=== PATIENT | male | born 1975 ===

== ENCOUNTER 2017-08-05 07:49 | Observation (INO) | payer BC ==
[~2017-08-05 07:49] MED LIST: Buffered Lidocaine 0.9% SYRIN* 5 ML/SYR SYRINGE INTRADERM ONE; Famotidine IV* 10 MG/ML 2 ML (20 mg) IV ONE; Metoclopramide TAB* 10 MG PO ONE
[2017-08-05] MEDS ORDERED: Buffered Lidocaine 0.9% SYRIN* 5 ML/SYR SYRINGE ONE ×2 (08:07→08:58)
[2017-08-05] MEDS ORDERED: Famotidine IV* 10 MG/ML 2 ML (20 mg) ONE (08:07)
[2017-08-05] MEDS ORDERED: Clindamycin 900 MG IVPREMIX(* 900 MG/50 ML SDV IV ONE (08:07)
[2017-08-05] MEDS ORDERED: Metoclopramide TAB* 10 MG ONE (08:07)
[2017-08-05] MEDS ORDERED: Lidocaine 1% MPF wEPI 200,000* 30 ML SDV ONE (09:22)
[2017-08-05] MEDS ORDERED: Thrombin 5,000 UNITS* 1 APPLIC KIT - topical use - TOPICAL ONE (09:22)
[2017-08-05] MEDS ORDERED: Bacitracin IV* 50,000 UNITS INJ ONE (09:23)
[2017-08-05] MEDS ORDERED: fentaNYL* 50 MCG/ML 2 ML VIAL (100 MCG VIAL) ONE ×2 (09:32→10:57)
[2017-08-05] MEDS ORDERED: Dexamethasone IV* 4 MG/ML 1 ML (4 MG) ONE (09:33)
[2017-08-05] MEDS ORDERED: Propofol* 10 MG/ML 20 ML BTL IV PUSH ONE (09:33)
[2017-08-05] MEDS ORDERED: Atracurium* 10 MG/ML 10 ML VIAL ONE (09:33)
[2017-08-05] MEDS ORDERED: Lidocaine 2% PF * 5 ML VIAL ONE (09:33)
[2017-08-05] MEDS ORDERED: Ondansetron INJ* 2 MG/ML VIAL ONE (09:33)
[2017-08-05] MEDS ORDERED: Scopolamine 1.5 mg* PATCH ONE (09:36)
[2017-08-05] MEDS ORDERED: fentaNYL* 50 MCG/ML 2 ML VIAL (100 MCG VIAL) IV PRN (10:15)
[2017-08-05] MEDS ORDERED: DiMENhydriNATE IV* 50 MG/ML VIAL IV PUSH PRN (10:15)
[2017-08-05] MEDS ORDERED: Ketorolac INJ* 30 MG/ML 1 ML VIAL IV PRN (10:15)
[2017-08-05] MEDS ORDERED: Naloxone* 0.4 MG/ML 1 ML VIAL IV PRN (10:15)
[2017-08-05] MEDS ORDERED: HYDROmorphone INJ* 1 MG/ML CARPUJECT SYRINGE IV PRN (10:15)
[2017-08-05] MEDS ORDERED: oxyCODONE/Acetamin 5/325 MG* TAB PO PRN (10:15)
[2017-08-05] MEDS ORDERED: Magnesium Hydroxide LIQ* 30 ML UDC PO PRN (10:33)
[2017-08-05] MEDS ORDERED: Acetaminophen TAB* 325 MG PO PRN (10:33)
[2017-08-05] MEDS ORDERED: Ondansetron INJ* 2 MG/ML VIAL IV PRN (10:33)
[2017-08-05] MEDS ORDERED: Ketorolac INJ* 30 MG/ML 1 ML VIAL ONE (10:57)
--- NOTE | 2017-08-05 11:28 | RAD ---
INDICATION: Left lumbar discectomy L4-L5. COMPARISON: There are no prior studies available for comparison. TECHNIQUE: A single crosstable lateral film of the lumbar spine was obtained in the operating room. FINDINGS: There is a localization instrument which projects posteriorly at the L4-L5 level. IMPRESSION: INTRAOPERATIVE CONTROL FILMS.
[2017-08-05] MEDS ORDERED: HYDROcodone/ACETAMIN 5-325 MG* 1 TAB ONE (12:03)
[2017-08-05] MEDS: HYDROcodone/ACETAMIN 5-325 MG* 1 TAB PO PRN (22:06)
[2017-08-06] MEDS: HYDROcodone/ACETAMIN 5-325 MG* 1 TAB PO PRN ×2 (06:20→10:19)
[2017-08-06 07:34] VITALS: BP 119/52
--- NOTE | 2017-08-06 08:24 | PN ---
Progress Note - Progress Note Date of Service: 08/06/17 SOAP: Subjective: [S/p L4-5 left discectomy POD #1. Complains of low back soreness this morning. Pre-op LLE pain resolved. Ambulating well independently. Denies headache and nausea. ] Objective: [ Vital Signs: Temp Pulse Resp BP Pulse Ox 98.5 F 70 16 119/52 97 08/06/17 07:30 08/06/17 07:30 08/06/17 07:30 08/06/17 07:30 08/06/17 07:30 General: Alert and oriented. Laying comfortably in bed. Neuro: Motor and sensory intact. Incision: Dressing intact. No swelling. Extremities: Full ROM] Assessment: [Satisfactory post-op course. Pain well controlled with PO pain meds.] Plan: [1. Discharge home today. 2. Discharge instructions discussed with the patient. ]
--- NOTE | 2017-08-06 20:28 | OP ---
DATE OF OPERATION: 08/05/17 - ROOM #334 DATE OF : 71 SURGEON: James Claire MD ACADEMIC GUIDANCE SPECIALIST: JD Barba ANESTHESIOLOGIST: Fredis Ochoa MD ANESTHESIA: General. PRE-OP DIAGNOSIS: Herniated nucleus pulposus, L4-5 on the left. POST-OP DIAGNOSIS: Herniated nucleus pulposus, L4-5 on the left. OPERATIVE PROCEDURE: Lumbar diskectomy, L4-5 on the left with microdissection. DESCRIPTION OF PROCEDURE: After satisfactory general anesthesia was obtained, the patient was placed on the operating table in a prone position with the chest supported on the Kit frame and the back slightly flexed. The lumbar region was then clipped, prepped and draped in a sterile manner for lumbar laminectomy and a skin incision outlined from L4 to L5. This incision was infiltrated with 1% Xylocaine with epinephrine after which it was turned down sharply to the level of the lumbar fascia. The fascia was divided along the spinous processes of L4 and L5 and the paraspinal musculature stripped away from these posterior elements using the periosteal elevator and monopolar cautery. An intraoperative x-ray was obtained verifying proper interspace localization after which a partial hemilaminectomy was carried out at L4 and L5 by removing the inferior aspect of the L4 lamina and medial aspect of the facet complex using the combination of the Midas Ricki drill and Kerrison rongeurs. The dissection was carried superiorly until the attachment of the ligamentum flavum was taken down. The ligamentum flavum was then removed with the Kerrison. At this point of the procedure, the operating microscope was brought into the field and the remainder of the procedure was done under microscopic visualization. Utilizing microdissection, epidural venous structures were coagulated and divided. Projecting beneath the L5 nerve root was noted to be a freely extruded disk fragment. The opening in the posterior longitudinal ligament was enlarged and multiple fragments of disk removed from beneath the nerve root. The disk space itself was then cleared of any loose disk material utilizing pituitary forceps and curettes. At the conclusion of the decompression, the L5 nerve roots were noted to be free in its course. After assuring adequate hemostasis, the wound was thoroughly irrigated after which the fascia was reapproximated with 0 Vicryl suture, the subcutaneous tissue closed with 3-0 Vicryl suture and the skin closed with skin clips. The estimated blood loss was less than 50 cc and the final sponge, padding and needle counts were correct. The patient was taken to the recovery room, extubated and in stable condition. [id number]/[facility] #: [id number] MTDD
--- NOTE | 2017-08-07 14:21 | DS ---
DATE OF ADMISSION: 08/05/2017. DATE OF DISCHARGE: 08/06/2017. ATTENDING PHYSICIAN: Dr. James Claire * (dictated by JD Dozier). DISCHARGE DIAGNOSIS: Herniated nucleus pulposus L4-5 on the left. SPECIAL PROCEDURE: Lumbar diskectomy at L4-5 on the left. HOSPITAL COURSE: This 41-year-old male was seen in the office with left-sided lumbar radiculopathy for the previous four months which had failed to improve with conservative treatment. MRI finding showed a large herniated disk consistent with the patient's symptoms and physical exam findings. Considering medications and therapies had failed to improve the patient's symptoms, surgery was discussed with the patient and he decided to proceed with this option. On the day of admission, he was taken to the surgery where a lumbar diskectomy at L4-5 on the left operation was carried out. Postoperatively, he is feeling well and the left lower extremity symptoms have resolved. He is ambulating independently. He is eating, drinking and voiding without difficulty. On the first postoperative day, he was discharged home to the care of his . Discharge instructions, including wound care and activity level were discussed with the patient and information on this was provided. DISCHARGE MEDICATIONS: 1. [place] 5/325 mg one to two tabs by mouth every 4 hours as needed for pain. 2. Ibuprofen 800 mg one tablet by mouth every 6 hours as needed, max daily dose 3. FOLLOW-UP: The patient will be seen in the office in approximately seven to ten days. JD DOZIER [id number]/[facility] #: [id number] [facility]
[2017-08-08] MEDS ORDERED: Scopolamine PATCH Remove* 1 NOTE MISC PATCH OFF ONE (10:16)
== END 2017-08-06 10:20 | disposition home or self-care (01) ==
LOC: OR 07:49 → SSU 11:56
PROVIDERS: ADMIT Neurological Surgery; ATTEND Neurological Surgery
PROC: 0SB20ZZ Excision of Lumbar Vertebral Disc, Open Approach (ICD-10-PCS; 2017-08-05)
PROC: 01NB0ZZ Release Lumbar Nerve, Open Approach (ICD-10-PCS; principal; 2017-08-05 09:15)
DX: M51.26 Other intervertebral disc displacement, lumbar region (principal); M54.5 Low back pain
CPT/HCPCS: 72100; 94760; A9270-GY; G0378; J1100; J1885; J2001; J2405; J2704; J3010

== ENCOUNTER 2017-08-10 08:19 | Inpatient (IN) | payer BC ==
[2017-08-10] MEDS: Morphine INJ* 2 MG/ML 1 ML CARPUJECT IV PRN (12:28)
[2017-08-10] MEDS: Docusate CAP* 100 MG PO PRN (12:34)
[2017-08-10] MEDS: Cyclobenzaprine TAB* 10 MG PO PRN (12:44)
[2017-08-10 13:06] LABS: ABS Basophils 0 10^3/ul (0-0.2); ABS Eosinophils 0 10^3/ul (0-0.6); ABS Lymphocytes 0.8 10^3/ul (1.0-4.8); ABS Monocytes 0.1 10^3/ul (0-0.8); ABS Neutrophils 13.9 10^3/ul (1.5-7.7); ABS Nucleated RBC 0 10^3/ul; Eosinophil % 0 % (0-6); Hematocrit 44 % (42-52); Hemoglobin 15.1 g/dl (14.0-18.0); Lymphocyte % 5.5 % (25-47); Mean Corpuscular HGB Conc 35 g/dl (31-36); Mean Corpuscular Hemoglobin 29 pg (27-31); Mean Corpuscular Volume 85 fL (80-94); Mean Platelet Volume 7 um3 (7.4-10.4); Nucleated Red Blood Cells % 0; Platelet Count 347 10^3/ul (150-450); Red Blood Count 5.15 10^6/ul (4.0-5.4); Red Cell Distribution Width 13 % (10.5-15); White Blood Count 14.9 10^3/ul (3.5-10.8)
[2017-08-10 13:20] LABS: EGFR Non-African American 101.1 (>60)
--- NOTE | 2017-08-10 13:34 | HP ---
H&P (Free Text) History and Physical: History and Physical Date of Admission: 08/10/17 CC: Left lower extremity pain HPI: This is a 41 year old male with past medical history significant for herniated disc L4-5 to the left s/p lumbar discectomy L4-5 on the left on . He was discharged home on 08/06/17 with improvement in the LLE pain and pre- operative symptoms. He reports repositioning in bed while at home and feeling something shift in his low back resulting in severe, shooting LLE pain, worse than pre-op. He contacted the office and was treated with a medrol dosepack which did not improve symptoms. He was also advised to rest, lay comfortably and take the pain medication prescribed at discharge. Today, the pain was so severe and unrelieved with medications that his called for an ambulance to bring him to the ED. He presented to the [facility] ED in [place] and was treated with dilaudid and IV steroids. The patient reports minimal improvement with these medications. The ED provider contacted [facility] for possible transfer to [facility]. Dr. Claire has accepted this patient as a direct admit to the surgical floor. Currently, the patient complains of LLE shooting pain beginning in the left sided low back and travelling to the left buttock then down the leg. The pain is worse with movements and he has been unable to ambulate. He has difficulty bearing weight on the LLE secondary to pain. He also complains of spasms occurring in the low back to LLE which worsens the pain. He denies RLE numbness , tingling, weakness and pain. Denies headache, nausea, chest pain and difficulty breathing. Denies fever, chills, drainage from incision. Past medical history: 1. HNP L4-5 left; s/p discectomy left 08/05/17 Past surgical history: 1. Lumbar discectomy L4-5 on the left with Dr. Claire 2. Eye surgery Home medications: 1. Hydrocodone-Acetamin 5-325 mg 08/05/17 [History] 2. Ibuprofen TAB* [Motrin TAB* 800 MG] 800 mg PO Q6H PRN #30 tab MDD 3 08/06/17 [Rx] 3. Medrol dosepack 4mg tabpack take as directed, started on 08/07/17 Allergies: 1. Penicillins Social History: This patient lives at home with his . 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 He does not smoke and rarely consumes alcohol. Family History: Non-contributory ROS: Full ROS completed. Pertinent findings stated in HPI and all others negative Physical Exam: Vital Signs: Temp Pulse Resp BP Pulse Ox 97.3 F 71 18 145/77 100 08/10/17 12:23 08/10/17 12:23 08/10/17 12:44 08/10/17 12:23 08/10/17 12:23 General: Alert and oriented. Laying supine in bed, clearly uncomfortably in pain. HEENT: Head is normocephalic and atraumatic. PERRL, EOMI, sclerae anicteric. Corrective lenses in place. Moist mucus membranes. Gross hearing intact. Neck: Supple symmetric. Nontender to palpation. CV: Radial and pedal pulses 2+ and equal bilaterally. Lungs: Breathing is nonlabored and lungs are clear. Abdomen: The abdomen is flat. Abdomen is nondistended, nontender and soft. Neuro: Speech is clear. Upper extremity motor normal. Right lower extremity- Strength 5/5. Left lower extremity- Pain with strength testing, EHL and dorsiflexion 4/5, plantarflexion 5/5. SLR positive on left. Sensation intact. Incision: Intact with estrella. Mild ecchymosis. Nontender. No warmth, erythema, swelling or drainage. Assessment: This is a 41 year old male with recurrent left sided lumbar radiculopathy with recent history of lumbar discectomy L4-5 on the left on 08/05. Post operatively he was discharged home with improvement in pre-op symptoms. LLE pain returned 1-2 days later and has been persistent despite steroids and norco. Weakness of left EHL and dorsiflexion appreciated on exam although severe pain with strength testing. Plan: 1. Admit to [facility] 2. Pain management 3. MRI lumbar spine w/wo tomorrow morning 4. CBC, BMP 5. IVF 6. Install trapeeze 7. OOB Ad david 8. Regular diet 9. SCDs
[2017-08-10] MEDS ORDERED: DEXAMETHASONE IVPB ONE (14:08)
[2017-08-10] MEDS ORDERED: NS 0.9% IVPB ONE (14:08)
[2017-08-10] MEDS: Gabapentin CAP(*) 300 MG PO SCH ×2 (15:52→21:04)
[2017-08-10] MEDS: oxyCODONE TAB* 5 MG TAB PO PRN (16:36)
[2017-08-10] MEDS ORDERED: Dexamethasone IV* 4 MG in NS 0.9% 50 ML* 50 ML IVPB SCH (20:30)
[2017-08-10] MEDS: Dexamethasone IV* 4 MG/ML 1 ML (4 MG) IV SLOW PU SCH (21:06)
[2017-08-11] MEDS: Cyclobenzaprine TAB* 10 MG PO PRN ×2 (00:29→14:58)
[2017-08-11] MEDS: Morphine INJ* 2 MG/ML 1 ML CARPUJECT IV PRN ×3 (03:44→22:05)
[2017-08-11] MEDS: Dexamethasone IV* 4 MG/ML 1 ML (4 MG) IV SLOW PU SCH ×4 (03:44→22:08)
[2017-08-11] MEDS: oxyCODONE TAB* 5 MG TAB PO PRN ×4 (08:11→21:05)
[2017-08-11] MEDS: Docusate CAP* 100 MG PO PRN ×2 (08:11→21:09)
[2017-08-11] MEDS: Gabapentin CAP(*) 300 MG PO SCH ×3 (08:11→21:06)
--- NOTE | 2017-08-11 09:12 | PN ---
Progress Note - Progress Note Date of Service: 08/11/17 SOAP: Subjective: [Patient seen and examined this morning at 0800. S/p lumbar discectomy L4-5 on the left on 08/05/17. Recurrent LLE pain, worse with movement and unable to bear weight. Symptoms slightly improved overnight with oxycodone, morphine, flexeril and decadron. Patient denies headache, nausea, fever. ] Objective: [ Vital Signs: Temp Pulse Resp BP Pulse Ox 99.4 F 94 16 143/74 95 08/11/17 15:59 08/11/17 15:59 08/11/17 16:16 08/11/17 15:59 08/11/17 15:59 General: Alert and oriented. Seems more comfortable today. Neuro: Mild EHL and dorsiflexion weakness left. Incision: Intact with estrella. No swelling, erythema, warmth. ] Assessment: [Patient slightly improved overnight. Continues to have severe LLE and low back shooting pain and spasms. ] Plan: [1. MRI without contrast lumbar spine this morning. 2. Continue pain management 3. Out of bed with assistance. ]
--- NOTE | 2017-08-11 11:31 | RAD ---
HISTORY: Postop, recurrent radiculopathy COMPARISONS: None relevant available at the time of dictation TECHNIQUE: The following sequences were obtained of the lumbar spine: Sagittal and axial T1- and T2-weighted images, coronal T2-weighted images, and sagittal STIR images. FINDINGS: There is a transitional last lumbar type vertebral body which will be labeled L5 concordant with the history of surgery. SPINAL CORD, CONUS, AND CAUDA EQUINA: The visualized spinal cord, conus, and cauda equina are normal in caliber, position, and signal intensity. ALIGNMENT: The alignment is normal. VERTEBRAL BODIES: A left-sided laminectomy defect is noted at L4-L5. There is partial sacralization of the L5 vertebral body. JOINTS: There is facet osteoarthritis along the lower lumbar spine. MUSCULATURE: There is mild fatty infiltration. INTERVERTEBRAL DISCS: There is loss of intervertebral disc height and T2 signal at L3-L4 and L4-L5. AXIAL IMAGES: L3-L4: There is a mild broad-based disc bulge with a central annular fissure. There is bilateral facet hypertrophy. There is no significant neural foraminal narrowing or central canal stenosis. L4-L5: A left-sided laminectomy defect is noted. There is bilateral facet hypertrophy. There is an epidural soft tissue density measuring 1.5 cm in depth consistent with a large left-sided left lateral recess disc extrusion. This displaces the descending nerve roots on the left. There is mild bilateral neural foraminal narrowing. L5-S1: There is bilateral facet hypertrophy. There is no significant neural foraminal narrowing or central canal stenosis. SOFT TISSUES: The visualized soft tissues of the abdomen are unremarkable. OTHER: None. IMPRESSION: 1. LEFT-SIDED LAMINECTOMY AT L4-L5. 2. THERE IS A LARGE LEFT-SIDED DISC EXTRUSION AT L4-L5 DISPLACING THE DESCENDING NERVE ROOTS.
[2017-08-12] MEDS: oxyCODONE TAB* 5 MG TAB PO PRN ×3 (03:41→22:29)
[2017-08-12] MEDS: Cyclobenzaprine TAB* 10 MG PO PRN (03:41)
[2017-08-12] MEDS: Dexamethasone IV* 4 MG/ML 1 ML (4 MG) IV SLOW PU SCH (03:46)
[2017-08-12] MEDS ORDERED: Sodium Citrate/Citric Acid* 15 ML UDC PO ONE (06:00)
[2017-08-12] MEDS ORDERED: Buffered Lidocaine 0.9% SYRIN* 5 ML/SYR SYRINGE INTRADERM ONE (06:00)
[2017-08-12] MEDS ORDERED: Famotidine IV* 10 MG/ML 2 ML (20 mg) IV ONE (06:00)
[2017-08-12] MEDS ORDERED: fentaNYL* 50 MCG/ML 2 ML VIAL (100 MCG VIAL) ONE (06:57)
[2017-08-12] MEDS ORDERED: Midazolam* 1 MG/ML 2 ML VIAL (2 MG) ONE (06:57)
[2017-08-12] MEDS ORDERED: Rocuronium* 10 MG/ML VIAL ONE (07:11)
[2017-08-12] MEDS ORDERED: Propofol* 10 MG/ML 20 ML BTL IV PUSH ONE (07:12)
[2017-08-12] MEDS ORDERED: Lidocaine 2% PF * 5 ML VIAL ONE (07:12)
[2017-08-12] MEDS ORDERED: Ondansetron INJ* 2 MG/ML VIAL ONE (07:15)
[2017-08-12] MEDS ORDERED: Ketorolac INJ* 30 MG/ML 1 ML VIAL ONE (07:15)
[2017-08-12] MEDS ORDERED: Thrombin 5,000 UNITS* 1 APPLIC KIT - topical use - TOPICAL ONE (07:23)
[2017-08-12] MEDS ORDERED: Lidocaine 1% MPF wEPI 200,000* 30 ML SDV ONE (07:23)
[2017-08-12] MEDS ORDERED: Bacitracin IV* 50,000 UNITS INJ ONE (07:24)
[2017-08-12] MEDS ORDERED: Sodium Citrate/Citric Acid* 15 ML UDC ONE (07:29)
[2017-08-12] MEDS ORDERED: Clindamycin 900 MG IVPREMIX(* 900 MG/50 ML SDV IV ONE (07:29)
[2017-08-12] MEDS ORDERED: Buffered Lidocaine 0.9% SYRIN* 5 ML/SYR SYRINGE ONE (07:29)
[2017-08-12] MEDS ORDERED: Famotidine IV* 10 MG/ML 2 ML (20 mg) ONE (07:29)
[2017-08-12] MEDS ORDERED: Naloxone* 0.4 MG/ML 1 ML VIAL IV PRN (07:30)
[2017-08-12] MEDS ORDERED: fentaNYL* 50 MCG/ML 2 ML VIAL (100 MCG VIAL) IV PRN (07:30)
[2017-08-12] MEDS ORDERED: HYDROmorphone INJ* 1 MG/ML CARPUJECT SYRINGE IV PRN (07:30)
[2017-08-12] MEDS ORDERED: oxyCODONE TAB* 5 MG TAB PO PRN ×2 (07:30)
[2017-08-12] MEDS ORDERED: Ondansetron INJ* 2 MG/ML VIAL IV PRN (07:30)
[2017-08-12] MEDS ORDERED: diPHENhydraMINE IV* 50 MG/ML 1 ml VIAL (BENADRYL) IV PRN (07:30)
[2017-08-12] MEDS ORDERED: HYDROmorphone INJ* 1 MG/ML CARPUJECT SYRINGE ONE (08:11)
[2017-08-12] MEDS: Gabapentin CAP(*) 300 MG PO SCH ×3 (08:23→20:49)
[2017-08-12] MEDS: Docusate CAP* 100 MG PO PRN (20:53)
[2017-08-13] MEDS: oxyCODONE TAB* 5 MG TAB PO PRN ×4 (02:50→23:18)
[2017-08-13] MEDS: Morphine INJ* 2 MG/ML 1 ML CARPUJECT IV PRN (03:13)
[2017-08-13] MEDS: Cyclobenzaprine TAB* 10 MG PO PRN (07:51)
--- NOTE | 2017-08-13 08:00 | PN ---
Progress Note - Progress Note Date of Service: 08/13/17 SOAP: Subjective: []POD # 1 Pre op leg pain relieved C/O incisional pain Very concerned about movement after recurrent disc herniation Objective: []Motor intact Dressing dry Assessment: [] Satis post op course Plan: []PT eval D/C Morphine Increase activity
[2017-08-13] MEDS: Ibuprofen TAB* 800 MG PO PRN ×2 (08:17→21:15)
[2017-08-13] MEDS: Gabapentin CAP(*) 300 MG PO SCH ×3 (08:17→21:16)
[2017-08-13] MEDS: Diazepam TAB(*) 5 MG PO PRN (21:15)
[2017-08-13] MEDS: Docusate CAP* 100 MG PO PRN (21:21)
[2017-08-14] MEDS: oxyCODONE TAB* 5 MG TAB PO PRN ×2 (03:51→08:07)
[2017-08-14] MEDS: Diazepam TAB(*) 5 MG PO PRN (06:17)
[2017-08-14] MEDS: Ibuprofen TAB* 800 MG PO PRN (06:17)
--- NOTE | 2017-08-14 08:03 | PN ---
Progress Note - Progress Note Date of Service: 08/14/17 SOAP: Subjective: [S/p redo lumbar discectomy L4-5 on the left, POD#2. Patient feeling better this morning. Has ambulated independently. PT evaluated yesterday. Denies headache, nausea, lower extremity symptoms. Low back pain mild, controlled with PO meds.] Objective: [ Vital Signs: Temp Pulse Resp BP Pulse Ox 97.8 F 83 14 118/71 96 08/14/17 03:26 08/14/17 03:26 08/14/17 06:17 08/14/17 03:26 08/14/17 03:26 General: Alert and oriented. No distress or acute pain. Neuro: Motor and sensory intact. Incision: Intact with estrella. No swelling. ] Assessment: [Satisfactory post op. Pain well controlled. Pre-op symptoms improved. ] Plan: [1. Discharge home today. 2. Discharge instructions discussed with the patient. ]
[2017-08-14] MEDS: Gabapentin CAP(*) 300 MG PO SCH (08:05)
[2017-08-14] MEDS: Docusate CAP* 100 MG PO PRN (08:09)
[2017-08-14 11:35] VITALS: BP 127/74
--- NOTE | 2017-08-20 04:25 | OP ---
DATE OF OPERATION: 08/12/17 - ROOM #333 DATE OF : 71 SURGEON: James Claire MD COLLECTIONS SPECIALIST: JD Barba ANESTHESIA: General. PRE-OP DIAGNOSIS: Recurrent herniated nucleus pulposus, L4-5 on the left. POST-OP DIAGNOSIS: Recurrent herniated nucleus pulposus, L4-5 on the left. OPERATIVE PROCEDURE: Exploration of previous lumbar diskectomy L4-5 on the left with excision of herniated nucleus pulposus, L4-5 on the left with microdissection. DESCRIPTION OF PROCEDURE: This patient had undergone a lumbar diskectomy on for a disk herniation at L4-5 on the left side. Postoperatively, he had done well for 2 days prior to turning over in bed and feeling a severe return of his pain. He was re-imaged and found to have a large recurrent extruded disk fragment and was taken to surgery at this time. After satisfactory general anesthesia was obtained, he was placed on the operating room table in the prone position with the chest supported on the Kit frame and the back slightly flexed. Lumbar region was then clipped, prepped and draped in a sterile manner for lumbar laminectomy and a skin incision was outlined basically along his previous incision. His previous incision was infiltrated with 1% Xylocaine with epinephrine after which it was opened down to the level of the fascia. Previous 0 Vicryl sutures were removed and a self-retaining retractor placed to facilitate exposure. The operating room microscope was brought into the field and the remainder of the procedure done under microscopic visualization. There was noted to be a huge extruded disk fragment projecting adjacent to the L5 nerve root. Multiple fragments of disk material were removed. The disk space itself was then entered and again cleared out of any loose disk material using pituitary forceps and curettes. At the conclusion of the decompression, the L5 nerve roots were noted to be free in its course. After assuring adequate hemostasis, the wound was thoroughly irrigated after which a piece of Gelfoam was placed over the laminectomy defect. The fascia was then reapproximated with 0 Vicryl suture. The subcutaneous tissue was closed with 3-0 Vicryl suture and the skin closed with skin clips. The estimated blood loss was less than 50 cc and final sponge, padding, and needle counts were correct. The patient was taken to the recovery room, extubated and in stable condition. [id number]/[facility] #: [id number] [facility]ENTER[facility]
--- NOTE | 2017-08-20 22:44 | DS ---
DISCHARGE SUMMARY: DATE OF ADMISSION: 08/10/17 DATE OF DISCHARGE: 08/14/17 ATTENDING PHYSICIAN: Dr. Claire.* (DICTATED BY JD DOZIER) DISCHARGE DIAGNOSIS: Recurrent herniated nucleus pulposus, L4-5 on the left. SPECIAL PROCEDURE: Redo lumbar discectomy L4-5 on the left. HOSPITAL COURSE: This 41-year-old male underwent recent lumbar diskectomy for a herniated disk at L4-5 on the left. Approximately 3 days after surgery, he experienced severe recurrence of symptoms including left lumbar radiculopathy and left lower extremity numbness. He was unable to get out of bed and pain medications and steroids were not improving symptoms. He presented to the emergency department in [place] and was transferred to [facility] as a direct admission for continuity of care. On 08/11/17, a lumbar spine MRI was obtained showing a large recurrent herniated disk at L4-5 on the left. While in the hospital, he was treated with pain medications, muscle relaxants, anti-inflammatory medications, and cold application. Surgery for the recurrent disk was discussed with the patient and scheduled urgently. On 08/12/17, he was taken to surgery where under general anesthesia, a redo lumbar diskectomy at L4-5 on the left operation was carried out. Postoperatively, the left lower extremity symptoms were improved, the pain was resolved and some numbness remained. Weakness in the left foot was improving. He was cautious to be getting out of bed and ambulating independently, so he was evaluated by physical therapy. On the second postoperative day, symptoms had significantly improved and he was feeling well. He was up and ambulating independently and performing ADLs without difficulty. Pain was well controlled with oral pain medications. On the second postoperative day, he was discharged home to the care of his family and his . DISCHARGE INSTRUCTIONS: Including wound care and activity level were again discussed with the patient and information on this was provided. He will be seen in the office in approximately 1 week for followup and staple removal. DISCHARGE MEDICATIONS: Oxycodone 5 mg 1 to 2 tablets every 4 hours as needed for pain and cyclobenzaprine 10 mg 1 tablet 3 times daily as needed for muscle spasms. JD DOZIER [id number]/[facility] #: [id number] MTDD
== END 2017-08-14 11:55 | disposition home or self-care (01) | DRG 310 ==
LOC: SSU 08:19 → OBSVTOIN 08-11 08:19
PROVIDERS: ADMIT Neurological Surgery; ATTEND Neurological Surgery
PROC: 01NB0ZZ Release Lumbar Nerve, Open Approach (ICD-10-PCS; 2017-08-12)
PROC: 0SB20ZZ Excision of Lumbar Vertebral Disc, Open Approach (ICD-10-PCS; principal; 2017-08-12 07:45)
DX: M51.16 Intervertebral disc disorders with radiculopathy, lumbar region (principal); Z88.0 Allergy status to penicillin
CPT/HCPCS: 36415; 72148; 80048; 85025; A9270-GY; G0378; J1100; J1170; J1885; J2001; J2250; J2270; J2405; J2704; J3010